=== PATIENT | male | born 1950 | race Hispanic/Latino ===

== ENCOUNTER 2017-12-11 12:13 | Inpatient (IN) | payer MEDICARE ==
[~2017-12-11] VITALS: Ht 172.7 cm; Wt 92.2 kg
[~2017-12-11 12:13] MED LIST: CILO50TA PO; CLOP75TA14 PO; GABA-531 PO; HUM10VIA SQ; INVOK100TB PO; LISI10TA7 PO; METO-409 PO; NITR0.4T50 SL; ROSU20TA PO; TRAM50TA2 PO; TRAM50TA4 PO
[2017-12-11 13:04] LABS: EOSINOPHILS % (AUTO) 1.1 % (0.0-8.0); HEMATOCRIT 34.6 % (42-54); LYMPHOCYTES % (AUTO) 26.8 % (21.0-51.0); MEAN CORPUSCULAR HEMOGLOBIN 29.4 pg (27.0-33.0); MEAN CORPUSCULAR HGB CONC 33.2 g/dL (32.0-36.0); MEAN CORPUSCULAR VOLUME 88.6 fL (79-99); MONOCYTES % (AUTO) 8.1 % (3.0-13.0); PLATELET COUNT (AUTO) 211 K/uL (130-400); RED BLOOD CELL COUNT(AUTO) 3.91 MIL/uL (4.50-6.20); RED CELL DISTRIBUTION WIDTH 14.1 % (11.0-15.5); WHITE BLOOD COUNT (AUTO) 6.9 K/uL (4.8-10.8)
[2017-12-11 13:10] LABS: CREATININE 1.2 mg/dL (0.5-1.5)
[2017-12-11 13:11] LABS: INR 0.99 (0.85-1.15); PROTHROMBIN TIME 10.4 SEC (9.6-11.6)
[2017-12-11 13:14] LABS: ALBUMIN 2.8 g/dL (3.5-5.0); BILIRUBIN,TOTAL 0.3 mg/dL (0.2-1.0); CRP QUANTITATIVE 104.4 mg/L (0.00-9.0); TOTAL PROTEIN, SERUM 7.2 g/dL (6.0-8.3)
[2017-12-11 14:02] LABS: ERYTHROCYTE SEDIMENTATION RATE 70 MM/HR (0-15)
[2017-12-11] MEDS ORDERED: LEVOFLOXACIN 500 MG TABLET ONE (15:33)
[2017-12-11] MEDS ORDERED: METRONIDAZOLE 500 MG TABLET ONE (15:33)
[2017-12-11] MEDS ORDERED: ONDANSETRON HCL 4 MG/2 ML VIAL IVP PRN (16:45)
[2017-12-11] MEDS ORDERED: COMPOUND IV REFRIGERATED 1 EACH IVSOLN MISC PRN (16:45)
[2017-12-11] MEDS ORDERED: ACETAMINOPHEN 325 MG TAB PO PRN (16:45)
[2017-12-11] MEDS: ZOSYN 3.375GM+NS 50ML 50 ML IV SCH (17:00)
[2017-12-11] MEDS: VANCOMYCIN 1.25 GM in SODIUM CHLORIDE 0.9% 250 ML IV SCH (18:00)
[2017-12-11] MEDS: INSULIN R PO SS1 SQ SCH (21:00)
[2017-12-11] MEDS ORDERED: KETOROLAC TROMETHAMINE 15MG/ML ONE (22:46)
[2017-12-11] MEDS ORDERED: POTASSIUM CHLORIDE 20MEQ/100ML 100 ML IV PRN (23:15)
[2017-12-11] MEDS ORDERED: MORPHINE SULFATE 2 MG/ML 1ML SYG IVP PRN (23:15)
[2017-12-11] MEDS ORDERED: POTASSIUM CHLORIDE 10% ELIXIR 20 MEQ/15 ML UDCUP PO PRN (23:15)
[2017-12-11] MEDS ORDERED: LIDOCAINE HCL-MPF 1% 2ML VIAL IVP PRN (23:15)
[2017-12-11] MEDS ORDERED: IPRATROPIUM/ALBUTEROL SULFATE 3 ML SOLUTION IH PRN (23:15)
[2017-12-11] MEDS ORDERED: HYDRALAZINE HCL 20 MG/ML VIAL IV PRN (23:15)
[2017-12-11] MEDS ORDERED: POTASSIUM CHLORIDE 20 MEQ ERTAB PO PRN (23:15)
[2017-12-11 23:25] VITALS: BP 118/58
[2017-12-12] MEDS ORDERED: SULF1TAB42 PO (01:10)
[2017-12-12] MEDS: ZOSYN 3.375GM+NS 50ML 50 ML IV SCH ×3 (01:45→17:07)
[2017-12-12 04:47] VITALS: BP 124/57
[2017-12-12 05:39] LABS: BASOPHILS % (AUTO) 0.5 % (0.0-5.0); EOSINOPHILS % (AUTO) 1.4 % (0.0-8.0); HEMATOCRIT 32.9 % (42-54); LYMPHOCYTES % (AUTO) 28.2 % (21.0-51.0); MEAN CORPUSCULAR HEMOGLOBIN 29.5 pg (27.0-33.0); MEAN CORPUSCULAR HGB CONC 33.8 g/dL (32.0-36.0); MEAN CORPUSCULAR VOLUME 87.3 fL (79-99); MONOCYTES % (AUTO) 9.4 % (3.0-13.0); NEUTROPHILS % (AUTO) 60.5 % (40.0-77.0); PLATELET COUNT (AUTO) 197 K/uL (130-400); RED BLOOD CELL COUNT(AUTO) 3.77 MIL/uL (4.50-6.20); RED CELL DISTRIBUTION WIDTH 13.9 % (11.0-15.5); WHITE BLOOD COUNT (AUTO) 5.5 K/uL (4.8-10.8)
[2017-12-12 05:49] LABS: CREATININE 1.2 mg/dL (0.5-1.5); INR 1.03 (0.85-1.15); POTASSIUM 4.7 mmol/L (3.5-5.1); PROTHROMBIN TIME 10.8 SEC (9.6-11.6)
[2017-12-12] MEDS: INSULIN R PO SS1 SQ SCH ×4 (07:01→21:09)
[2017-12-12 08:00] VITALS: BP 125/63
[2017-12-12] MEDS: FAMOTIDINE 20MG TAB 20 MG TAB PO SCH ×2 (09:20→21:00)
[2017-12-12] MEDS: VANCOMYCIN 1.25 GM in SODIUM CHLORIDE 0.9% 250 ML IV SCH ×2 (09:37→20:59)
[2017-12-12 12:00] VITALS: BP 146/42
[2017-12-12] MEDS: GABAPENTIN 300 MG CAPSULE PO SCH ×2 (14:07→21:00)
[2017-12-12] MEDS: TRAMADOL HCL 50 MG TABLET PO PRN (14:53)
[2017-12-12 16:14] VITALS: BP 129/63
[2017-12-12 19:54] VITALS: BP 127/57
[2017-12-12] MEDS: METOPROLOL TARTRATE 50 MG TAB PO SCH (21:00)
[2017-12-12] MEDS: ATORVASTATIN CALCIUM 40 MG TABLET PO SCH (21:00)
[2017-12-12 23:49] VITALS: BP 98/54
[2017-12-13] MEDS: ZOSYN 3.375GM+NS 50ML 50 ML IV SCH ×3 (00:01→17:20)
[2017-12-13 04:00] VITALS: BP 132/68
[2017-12-13 05:35] LABS: BASOPHILS % (AUTO) 0.5 % (0.0-5.0); EOSINOPHILS % (AUTO) 1.7 % (0.0-8.0); HEMATOCRIT 34.2 % (42-54); LYMPHOCYTES % (AUTO) 34.8 % (21.0-51.0); MEAN CORPUSCULAR HEMOGLOBIN 29.9 pg (27.0-33.0); MEAN CORPUSCULAR VOLUME 87.9 fL (79-99); MONOCYTES % (AUTO) 10.9 % (3.0-13.0); NEUTROPHILS % (AUTO) 52.1 % (40.0-77.0); PLATELET COUNT (AUTO) 215 K/uL (130-400); RED BLOOD CELL COUNT(AUTO) 3.89 MIL/uL (4.50-6.20); RED CELL DISTRIBUTION WIDTH 13.6 % (11.0-15.5); WHITE BLOOD COUNT (AUTO) 5.2 K/uL (4.8-10.8)
[2017-12-13 05:48] LABS: CREATININE 1.1 mg/dL (0.5-1.5); POTASSIUM 4.4 mmol/L (3.5-5.1)
[2017-12-13] MEDS: LACTULOSE 20 GM/30 ML UDCUP PO PRN (06:11)
[2017-12-13 07:30] VITALS: BP 165/74
[2017-12-13] MEDS: INSULIN R PO SS1 SQ SCH ×4 (07:30→21:00)
[2017-12-13] MEDS: **HM** INVOKANA 100MG PO SCH (09:00)
[2017-12-13] MEDS: VANCOMYCIN 1.25 GM in SODIUM CHLORIDE 0.9% 250 ML IV SCH ×2 (10:00→21:56)
[2017-12-13] MEDS: CLOPIDOGREL BISULFATE 75 MG TAB PO SCH (10:01)
[2017-12-13] MEDS: TRAMADOL HCL 50 MG TABLET PO PRN ×2 (10:02→21:58)
[2017-12-13] MEDS: FAMOTIDINE 20MG TAB 20 MG TAB PO SCH ×2 (10:02→21:57)
[2017-12-13] MEDS: LISINOPRIL 5 MG TABLET PO SCH (10:02)
[2017-12-13] MEDS: GABAPENTIN 300 MG CAPSULE PO SCH ×3 (10:03→21:57)
[2017-12-13] MEDS: METOPROLOL TARTRATE 50 MG TAB PO SCH ×2 (10:04→21:57)
[2017-12-13 11:00] VITALS: BP 126/58
[2017-12-13 16:00] VITALS: BP 105/46
[2017-12-13 20:19] VITALS: BP 120/51
[2017-12-13] MEDS: ATORVASTATIN CALCIUM 40 MG TABLET PO SCH (21:56)
[2017-12-13 22:30] VITALS: BP 131/87
[2017-12-14] VITALS (7 sets, daily range): BP systolic 104–124; BP diastolic 48–55
[2017-12-14] MEDS: ZOSYN 3.375GM+NS 50ML 50 ML IV SCH ×3 (01:51→17:45)
[2017-12-14 05:11] LABS: BASOPHILS % (AUTO) 0.7 % (0.0-5.0); EOSINOPHILS % (AUTO) 1.9 % (0.0-8.0); HEMATOCRIT 32.7 % (42-54); LYMPHOCYTES % (AUTO) 39.8 % (21.0-51.0); MEAN CORPUSCULAR HEMOGLOBIN 29.5 pg (27.0-33.0); MEAN CORPUSCULAR HGB CONC 33.4 g/dL (32.0-36.0); MEAN CORPUSCULAR VOLUME 88.2 fL (79-99); MONOCYTES % (AUTO) 10.5 % (3.0-13.0); NEUTROPHILS % (AUTO) 47.1 % (40.0-77.0); PLATELET COUNT (AUTO) 219 K/uL (130-400); RED BLOOD CELL COUNT(AUTO) 3.71 MIL/uL (4.50-6.20); RED CELL DISTRIBUTION WIDTH 14.2 % (11.0-15.5); WHITE BLOOD COUNT (AUTO) 6.5 K/uL (4.8-10.8)
[2017-12-14 05:17] LABS: CREATININE 1.1 mg/dL (0.5-1.5); POTASSIUM 4.5 mmol/L (3.5-5.1)
[2017-12-14] MEDS: INSULIN R PO SS1 SQ SCH ×4 (06:08→22:57)
[2017-12-14] MEDS: **HM** INVOKANA 100MG PO SCH (09:00)
[2017-12-14] MEDS: VANCOMYCIN 1.25 GM in SODIUM CHLORIDE 0.9% 250 ML IV SCH ×2 (09:39→22:59)
[2017-12-14] MEDS: METOPROLOL TARTRATE 50 MG TAB PO SCH ×2 (09:40→23:00)
[2017-12-14] MEDS: FAMOTIDINE 20MG TAB 20 MG TAB PO SCH ×2 (09:40→23:00)
[2017-12-14] MEDS: LISINOPRIL 5 MG TABLET PO SCH (09:40)
[2017-12-14] MEDS: CLOPIDOGREL BISULFATE 75 MG TAB PO SCH (09:40)
[2017-12-14] MEDS: GABAPENTIN 300 MG CAPSULE PO SCH ×3 (09:40→23:00)
[2017-12-14] MEDS ORDERED: IOPAMIDOL-370 75 ML VIAL IV ONE (12:11)
[2017-12-14] MEDS ORDERED: ISOVUE-370 50ML VIAL IV ONE (12:11)
[2017-12-14] MEDS: MORPHINE SULFATE 2 MG/ML 1ML SYG IVP PRN (18:57)
[2017-12-14] MEDS: ATORVASTATIN CALCIUM 40 MG TABLET PO SCH (23:00)
[2017-12-15] MEDS: MORPHINE SULFATE 2 MG/ML 1ML SYG IVP PRN ×2 (00:39→21:21)
[2017-12-15] MEDS: ZOSYN 3.375GM+NS 50ML 50 ML IV SCH ×3 (00:47→17:00)
[2017-12-15 04:00] VITALS: BP 111/52
[2017-12-15 05:58] LABS: HEMATOCRIT 34.7 % (42-54); MEAN CORPUSCULAR HEMOGLOBIN 29.5 pg (27.0-33.0); MEAN CORPUSCULAR HGB CONC 33.5 g/dL (32.0-36.0); MEAN CORPUSCULAR VOLUME 87.9 fL (79-99); PLATELET COUNT (AUTO) 213 K/uL (130-400); RED BLOOD CELL COUNT(AUTO) 3.94 MIL/uL (4.50-6.20); RED CELL DISTRIBUTION WIDTH 13.6 % (11.0-15.5); WHITE BLOOD COUNT (AUTO) 6.3 K/uL (4.8-10.8)
[2017-12-15 06:08] LABS: CREATININE 1.1 mg/dL (0.5-1.5); POTASSIUM 4.7 mmol/L (3.5-5.1)
[2017-12-15] MEDS: INSULIN R PO SS1 SQ SCH ×4 (06:38→21:13)
[2017-12-15 08:00] VITALS: BP 126/59
[2017-12-15] MEDS: **HM** INVOKANA 100MG PO SCH (09:00)
[2017-12-15] MEDS: CLOPIDOGREL BISULFATE 75 MG TAB PO SCH (09:53)
[2017-12-15] MEDS: ASPIRIN 81MG TAB.CHEW PO SCH (09:53)
[2017-12-15] MEDS: LISINOPRIL 5 MG TABLET PO SCH (09:53)
[2017-12-15] MEDS: FAMOTIDINE 20MG TAB 20 MG TAB PO SCH ×2 (09:54→21:21)
[2017-12-15] MEDS: GABAPENTIN 300 MG CAPSULE PO SCH ×3 (09:54→21:21)
[2017-12-15] MEDS: METOPROLOL TARTRATE 50 MG TAB PO SCH ×2 (09:54→21:21)
[2017-12-15] MEDS: VANCOMYCIN 1.25 GM in SODIUM CHLORIDE 0.9% 250 ML IV SCH ×2 (09:55→21:21)
[2017-12-15 11:53] VITALS: BP 120/48
[2017-12-15 16:00] VITALS: BP 130/59
[2017-12-15 20:00] VITALS: BP 107/57
[2017-12-15] MEDS: ATORVASTATIN CALCIUM 40 MG TABLET PO SCH (21:21)
[2017-12-16] VITALS (7 sets, daily range): BP systolic 100–122; BP diastolic 44–60
[2017-12-16] MEDS: ZOSYN 3.375GM+NS 50ML 50 ML IV SCH ×3 (01:00→17:00)
[2017-12-16] MEDS: MORPHINE SULFATE 2 MG/ML 1ML SYG IVP PRN (01:52)
[2017-12-16 05:52] LABS: PARTIAL THROMBOPLASTIN TIME 27.8 SEC (26.3-35.5); PROTHROMBIN TIME 10.5 SEC (9.6-11.6)
[2017-12-16] MEDS: INSULIN R PO SS1 SQ SCH ×4 (06:28→21:00)
[2017-12-16] MEDS: METOPROLOL TARTRATE 50 MG TAB PO SCH ×2 (07:37→09:21)
[2017-12-16] MEDS: ASPIRIN 81MG TAB.CHEW PO SCH (09:00)
[2017-12-16] MEDS: FAMOTIDINE 20MG TAB 20 MG TAB PO SCH ×2 (09:00→22:03)
[2017-12-16] MEDS: CLOPIDOGREL BISULFATE 75 MG TAB PO SCH (09:00)
[2017-12-16] MEDS: **HM** INVOKANA 100MG PO SCH (09:00)
[2017-12-16] MEDS: LISINOPRIL 5 MG TABLET PO SCH (09:00)
[2017-12-16] MEDS: GABAPENTIN 300 MG CAPSULE PO SCH ×3 (09:00→22:02)
[2017-12-16] MEDS: VANCOMYCIN 1.25 GM in SODIUM CHLORIDE 0.9% 250 ML IV SCH ×2 (10:57→22:02)
[2017-12-16] MEDS ORDERED: MORPHINE SULFATE 4 MG/1ML SYG IVP PRN (11:30)
[2017-12-16] MEDS ORDERED: KETOROLAC TROMETHAMINE 15MG/ML IV PRN (11:30)
[2017-12-16] MEDS: ACETAMINOPHEN-CODEINE 300/30MG TAB PO PRN ×2 (13:14→22:23)
[2017-12-16] MEDS ORDERED: PHARMACY COMMUNICATION MISC SCH (13:15)
[2017-12-16] MEDS: MEROPENEM 1 GM VIAL IVP SCH (22:01)
[2017-12-16] MEDS: ATORVASTATIN CALCIUM 40 MG TABLET PO SCH (22:02)
[2017-12-17 04:00] VITALS: BP 112/50
[2017-12-17 04:29] LABS: HEMATOCRIT 33.3 % (42-54); MEAN CORPUSCULAR HEMOGLOBIN 29.4 pg (27.0-33.0); MEAN CORPUSCULAR HGB CONC 33.3 g/dL (32.0-36.0); MEAN CORPUSCULAR VOLUME 88.4 fL (79-99); PLATELET COUNT (AUTO) 206 K/uL (130-400); RED BLOOD CELL COUNT(AUTO) 3.77 MIL/uL (4.50-6.20); RED CELL DISTRIBUTION WIDTH 13.6 % (11.0-15.5)
[2017-12-17 04:52] LABS: CREATININE 0.9 mg/dL (0.5-1.5)
[2017-12-17] MEDS: MEROPENEM 1 GM VIAL IVP SCH ×3 (05:25→20:28)
[2017-12-17 07:00] VITALS: BP 138/61
[2017-12-17] MEDS: INSULIN R PO SS1 SQ SCH ×4 (07:30→21:25)
[2017-12-17] MEDS: **HM** INVOKANA 100MG PO SCH (09:00)
[2017-12-17] MEDS: ACETAMINOPHEN-CODEINE 300/30MG TAB PO PRN ×2 (10:32→23:40)
[2017-12-17] MEDS: GABAPENTIN 300 MG CAPSULE PO SCH ×3 (10:32→20:41)
[2017-12-17] MEDS: FAMOTIDINE 20MG TAB 20 MG TAB PO SCH ×2 (10:32→20:28)
[2017-12-17] MEDS: METOPROLOL TARTRATE 50 MG TAB PO SCH ×2 (10:33→20:28)
[2017-12-17] MEDS: VANCOMYCIN 1.25 GM in SODIUM CHLORIDE 0.9% 250 ML IV SCH ×2 (10:33→21:24)
[2017-12-17] MEDS: LISINOPRIL 5 MG TABLET PO SCH (10:33)
[2017-12-17 11:00] VITALS: BP 117/47
[2017-12-17 16:07] VITALS: BP 94/45
[2017-12-17 18:06] VITALS: BP 155/68
[2017-12-17] MEDS: MORPHINE SULFATE 2 MG/ML 1ML SYG IVP PRN (18:09)
[2017-12-17 20:00] VITALS: BP 153/67
[2017-12-17] MEDS: ATORVASTATIN CALCIUM 40 MG TABLET PO SCH (20:28)
[2017-12-18] VITALS: BP 139/58
[2017-12-18 04:00] VITALS: BP 133/57
[2017-12-18] MEDS: MEROPENEM 1 GM VIAL IVP SCH ×3 (04:24→21:41)
[2017-12-18] MEDS: LACTULOSE 20 GM/30 ML UDCUP PO PRN (04:30)
[2017-12-18] MEDS: INSULIN R PO SS1 SQ SCH ×4 (06:22→21:32)
[2017-12-18 07:00] VITALS: BP 126/65
[2017-12-18] MEDS: METOPROLOL TARTRATE 50 MG TAB PO SCH ×2 (08:47→21:41)
[2017-12-18] MEDS: GABAPENTIN 300 MG CAPSULE PO SCH ×3 (08:47→21:41)
[2017-12-18] MEDS: LISINOPRIL 5 MG TABLET PO SCH (08:47)
[2017-12-18] MEDS: **HM** INVOKANA 100MG PO SCH (08:47)
[2017-12-18] MEDS: FAMOTIDINE 20MG TAB 20 MG TAB PO SCH ×2 (08:47→21:41)
[2017-12-18] MEDS: VANCOMYCIN 1.25 GM in SODIUM CHLORIDE 0.9% 250 ML IV SCH ×2 (08:48→21:43)
[2017-12-18] MEDS: ACETAMINOPHEN-CODEINE 300/30MG TAB PO PRN ×2 (10:51→22:04)
[2017-12-18 11:00] VITALS: BP 119/56
[2017-12-18 16:00] VITALS: BP 110/51
[2017-12-18 20:00] VITALS: BP 155/71
[2017-12-18] MEDS: ATORVASTATIN CALCIUM 40 MG TABLET PO SCH (21:41)
[2017-12-19] VITALS: BP 96/45
[2017-12-19 03:48] LABS: HEMATOCRIT 33.5 % (42-54); MEAN CORPUSCULAR HEMOGLOBIN 29.5 pg (27.0-33.0); MEAN CORPUSCULAR HGB CONC 33.6 g/dL (32.0-36.0); MEAN CORPUSCULAR VOLUME 87.8 fL (79-99); PLATELET COUNT (AUTO) 204 K/uL (130-400); RED BLOOD CELL COUNT(AUTO) 3.81 MIL/uL (4.50-6.20); RED CELL DISTRIBUTION WIDTH 13.9 % (11.0-15.5); WHITE BLOOD COUNT (AUTO) 6.3 K/uL (4.8-10.8)
[2017-12-19 03:58] LABS: CREATININE 0.9 mg/dL (0.5-1.5); POTASSIUM 3.9 mmol/L (3.5-5.1)
[2017-12-19 04:00] VITALS: BP 121/69
[2017-12-19] MEDS: MEROPENEM 1 GM VIAL IVP SCH ×3 (05:23→20:34)
[2017-12-19] MEDS: INSULIN R PO SS1 SQ SCH ×4 (06:18→21:39)
[2017-12-19 08:00] VITALS: BP 144/62
[2017-12-19] MEDS: GABAPENTIN 300 MG CAPSULE PO SCH ×3 (08:43→20:34)
[2017-12-19] MEDS: FAMOTIDINE 20MG TAB 20 MG TAB PO SCH ×2 (08:43→20:34)
[2017-12-19] MEDS: METOPROLOL TARTRATE 50 MG TAB PO SCH ×2 (08:43→20:34)
[2017-12-19] MEDS: ACETAMINOPHEN-CODEINE 300/30MG TAB PO PRN ×3 (08:43→23:36)
[2017-12-19] MEDS: LISINOPRIL 5 MG TABLET PO SCH (08:43)
[2017-12-19] MEDS: VANCOMYCIN 1.25 GM in SODIUM CHLORIDE 0.9% 250 ML IV SCH ×2 (08:44→20:35)
[2017-12-19] MEDS: **HM** INVOKANA 100MG PO SCH (08:44)
[2017-12-19 12:00] VITALS: BP 106/46
[2017-12-19] MEDS ORDERED: WATER FOR INJECTION,STERILE 20 ML VIAL ONE (12:31)
[2017-12-19 16:00] VITALS: BP 101/44
[2017-12-19 20:00] VITALS: BP 120/58
[2017-12-19] MEDS: ATORVASTATIN CALCIUM 40 MG TABLET PO SCH (20:34)
[2017-12-20] VITALS (29 sets, daily range): BP systolic 92–159; BP diastolic 47–83
[2017-12-20] MEDS: MEROPENEM 1 GM VIAL IVP SCH ×3 (04:51→20:15)
[2017-12-20] MEDS: INSULIN R PO SS1 SQ SCH ×4 (06:15→21:42)
[2017-12-20] MEDS: GABAPENTIN 300 MG CAPSULE PO SCH ×3 (09:00→20:15)
[2017-12-20] MEDS: **HM** INVOKANA 100MG PO SCH (09:00)
[2017-12-20] MEDS: FAMOTIDINE 20MG TAB 20 MG TAB PO SCH ×2 (09:00→20:15)
[2017-12-20] MEDS: LISINOPRIL 5 MG TABLET PO SCH (10:15)
[2017-12-20] MEDS: MORPHINE SULFATE 2 MG/ML 1ML SYG IVP PRN (10:17)
[2017-12-20] MEDS: METOPROLOL TARTRATE 50 MG TAB PO SCH ×2 (10:17→20:15)
[2017-12-20] MEDS: VANCOMYCIN 1.25 GM in SODIUM CHLORIDE 0.9% 250 ML IV SCH ×2 (10:28→20:15)
[2017-12-20] MEDS ORDERED: LIDOCAINE PF 2% 5ML ABBOJECT ONE ×2 (12:10→16:04)
[2017-12-20] MEDS ORDERED: FENTANYL CITRATE PF 50 MCG/1 ML 2ML VIAL ONE ×3 (12:10→17:33)
[2017-12-20] MEDS ORDERED: MIDAZOLAM HCL 1 MG/ML 2ML VIAL ONE ×2 (12:10→14:55)
[2017-12-20] MEDS ORDERED: SUCCINYLCHOLINE 200MG/10ML SYR ONE (12:10)
[2017-12-20] MEDS ORDERED: GLYCOPYRROLATE 0.2 MG/ML 5 ML VIAL ONE (12:10)
[2017-12-20] MEDS ORDERED: DEXAMETHASONE SOD PHOSPHATE 10MG/ML 1ML VIAL ONE (12:10)
[2017-12-20] MEDS ORDERED: PROPOFOL 10 MG/ML 20ML VIAL IV ONE ×4 (12:10→16:05)
[2017-12-20] MEDS ORDERED: ONDANSETRON HCL 4 MG/2 ML VIAL ONE (12:10)
[2017-12-20] MEDS ORDERED: SODIUM CHLORIDE 0.9% 1000ML 1,000 ML IV ONE (14:07)
[2017-12-20] MEDS ORDERED: FENTANYL CITRATE PF 50 MCG/1 ML 5ML AMP IV ONE (14:55)
[2017-12-20] MEDS ORDERED: EPHEDRINE SULFATE 50 MG/ML AMPULE ONE (15:17)
[2017-12-20] MEDS ORDERED: ROPIVACAINE 0.5% 5MG/ML 30ML IJ ONE (16:32)
[2017-12-20] MEDS ORDERED: MEPERIDINE-PF 25 MG/ML SYG ONE ×2 (17:01→17:56)
[2017-12-20] MEDS ORDERED: KETOROLAC TROMETHAMINE 30MG/ML ONE (17:41)
[2017-12-20] MEDS ORDERED: PROMETHAZINE HCL 25 MG/ML 1ML AMPULE IM ONE (17:56)
[2017-12-20] MEDS: TRAMADOL HCL 50 MG TABLET PO PRN (20:14)
[2017-12-20] MEDS: ATORVASTATIN CALCIUM 40 MG TABLET PO SCH (20:15)
[2017-12-21 04:33] VITALS: BP 107/45
[2017-12-21] MEDS: MEROPENEM 1 GM VIAL IVP SCH (05:03)
[2017-12-21 05:44] LABS: HEMATOCRIT 25.6 % (42-54); MEAN CORPUSCULAR HGB CONC 36.3 g/dL (32.0-36.0); MEAN CORPUSCULAR VOLUME 88.3 fL (79-99); PLATELET COUNT (AUTO) 212 K/uL (130-400); RED CELL DISTRIBUTION WIDTH 13.9 % (11.0-15.5); WHITE BLOOD COUNT (AUTO) 6.3 K/uL (4.8-10.8)
[2017-12-21 06:10] LABS: CREATININE 1.3 mg/dL (0.5-1.5); POTASSIUM 5.1 mmol/L (3.5-5.1)
[2017-12-21] MEDS: INSULIN R PO SS1 SQ SCH ×4 (06:10→20:39)
[2017-12-21 07:00] VITALS: BP 90/42
[2017-12-21] MEDS: **HM** INVOKANA 100MG PO SCH (09:00)
[2017-12-21] MEDS: LISINOPRIL 5 MG TABLET PO SCH (09:00)
[2017-12-21] MEDS: METOPROLOL TARTRATE 50 MG TAB PO SCH ×2 (09:00→20:49)
[2017-12-21] MEDS: FAMOTIDINE 20MG TAB 20 MG TAB PO SCH ×2 (09:23→20:49)
[2017-12-21] MEDS: GABAPENTIN 300 MG CAPSULE PO SCH ×3 (09:24→20:49)
[2017-12-21] MEDS: VANCOMYCIN 1.25 GM in SODIUM CHLORIDE 0.9% 250 ML IV SCH (09:26)
[2017-12-21] MEDS: MORPHINE SULFATE 2 MG/ML 1ML SYG IVP PRN ×2 (09:38→18:28)
[2017-12-21] MEDS ORDERED: CEFTRIAXONE 1GM/D5W 50ML 50 ML IV SCH (10:00)
[2017-12-21 11:00] VITALS: BP 90/42
[2017-12-21] MEDS: CEFTRIAXONE SODIUM 1 GM IVP SCH (12:39)
[2017-12-21] MEDS: SODIUM CHLORIDE 0.9% 1000ML 1,000 ML IV SCH (13:10)
[2017-12-21 15:51] VITALS: BP 101/47
[2017-12-21] MEDS: ACETAMINOPHEN-CODEINE 300/30MG TAB PO PRN ×2 (17:09→23:53)
[2017-12-21] MEDS: ATORVASTATIN CALCIUM 40 MG TABLET PO SCH (20:48)
[2017-12-21 20:59] VITALS: BP 124/53
[2017-12-21 23:41] VITALS: BP 112/51
[2017-12-22] MEDS: SODIUM CHLORIDE 0.9% 1000ML 1,000 ML IV SCH (01:17)
[2017-12-22 04:20] VITALS: BP 118/50
[2017-12-22 04:34] LABS: HEMATOCRIT 24.2 % (42-54); MEAN CORPUSCULAR HEMOGLOBIN 30.3 pg (27.0-33.0); MEAN CORPUSCULAR HGB CONC 34.5 g/dL (32.0-36.0); MEAN CORPUSCULAR VOLUME 87.7 fL (79-99); PLATELET COUNT (AUTO) 201 K/uL (130-400); RED BLOOD CELL COUNT(AUTO) 2.76 MIL/uL (4.50-6.20); RED CELL DISTRIBUTION WIDTH 14.3 % (11.0-15.5); WHITE BLOOD COUNT (AUTO) 9.9 K/uL (4.8-10.8)
[2017-12-22 04:56] LABS: POTASSIUM 4.6 mmol/L (3.5-5.1)
[2017-12-22] MEDS: INSULIN R PO SS1 SQ SCH ×4 (05:24→22:06)
[2017-12-22] MEDS: MORPHINE SULFATE 2 MG/ML 1ML SYG IVP PRN ×5 (05:25→23:38)
[2017-12-22 07:00] VITALS: BP 131/53
[2017-12-22] MEDS: FAMOTIDINE 20MG TAB 20 MG TAB PO SCH ×2 (07:58→21:54)
[2017-12-22] MEDS: METOPROLOL TARTRATE 50 MG TAB PO SCH ×2 (07:58→21:53)
[2017-12-22] MEDS: GABAPENTIN 300 MG CAPSULE PO SCH ×2 (07:58→15:48)
[2017-12-22] MEDS: LISINOPRIL 5 MG TABLET PO SCH (07:59)
[2017-12-22] MEDS: **HM** INVOKANA 100MG PO SCH (08:05)
[2017-12-22] MEDS ORDERED: TRAMADOL HCL 50 MG TABLET PO PRN (10:30)
[2017-12-22 11:00] VITALS: BP 105/46
[2017-12-22] MEDS: CEFTRIAXONE SODIUM 1 GM IVP SCH (11:54)
[2017-12-22] MEDS: FERROUS SULFATE 325 MG TABLET.DR PO SCH (11:55)
[2017-12-22] MEDS ORDERED: GABAPENTIN 300 MG CAPSULE PO SCH (14:00)
[2017-12-22] MEDS: TRAMADOL HCL 50 MG TABLET PO SCH ×2 (15:07→21:53)
[2017-12-22] MEDS: LACTULOSE 20 GM/30 ML UDCUP PO PRN (15:07)
[2017-12-22] MEDS ORDERED: GABAPENTIN 100 MG CAPSULE ONE (15:39)
[2017-12-22] MEDS: GABAPENTIN 100 MG CAPSULE PO SCH ×2 (15:48→21:46)
[2017-12-22 17:34] VITALS: BP 113/53
[2017-12-22 19:00] VITALS: BP 131/58
[2017-12-22] MEDS: ATORVASTATIN CALCIUM 40 MG TABLET PO SCH (21:53)
[2017-12-23] MEDS: ACETAMINOPHEN-CODEINE 300/30MG TAB PO PRN ×2 (02:19→06:43)
[2017-12-23 03:00] VITALS: BP 106/47
[2017-12-23 04:09] LABS: HEMATOCRIT 22.8 % (42-54); MEAN CORPUSCULAR HEMOGLOBIN 30.9 pg (27.0-33.0); MEAN CORPUSCULAR HGB CONC 35.1 g/dL (32.0-36.0); NUCLEATED RED BLOOD CELLS 0.1 % (0.0-0.19); PLATELET COUNT (AUTO) 176 K/uL (130-400); RED BLOOD CELL COUNT(AUTO) 2.59 MIL/uL (4.50-6.20); WHITE BLOOD COUNT (AUTO) 7.5 K/uL (4.8-10.8)
[2017-12-23 04:11] LABS: CREATININE 0.9 mg/dL (0.5-1.5); POTASSIUM 4.3 mmol/L (3.5-5.1)
[2017-12-23] MEDS: INSULIN R PO SS1 SQ SCH ×3 (06:29→17:37)
[2017-12-23 07:00] VITALS: BP 106/47
[2017-12-23] MEDS: **HM** INVOKANA 100MG PO SCH (09:00)
[2017-12-23] MEDS: LISINOPRIL 5 MG TABLET PO SCH (09:33)
[2017-12-23] MEDS: GABAPENTIN 100 MG CAPSULE PO SCH ×2 (09:34→14:43)
[2017-12-23] MEDS: GABAPENTIN 300 MG CAPSULE PO SCH ×2 (09:35→14:43)
[2017-12-23] MEDS: METOPROLOL TARTRATE 50 MG TAB PO SCH (09:35)
[2017-12-23] MEDS: FAMOTIDINE 20MG TAB 20 MG TAB PO SCH (09:35)
[2017-12-23] MEDS: FERROUS SULFATE 325 MG TABLET.DR PO SCH (09:35)
[2017-12-23] MEDS: TRAMADOL HCL 50 MG TABLET PO SCH ×2 (09:36→14:43)
[2017-12-23] MEDS: LACTULOSE 20 GM/30 ML UDCUP PO PRN (10:00)
[2017-12-23 11:00] VITALS: BP 110/53
[2017-12-23] MEDS: CEFTRIAXONE SODIUM 1 GM IVP SCH (12:21)
[2017-12-23 16:00] VITALS: BP 123/41
== END 2017-12-23 18:35 | DRG 617 ==
LOC: EDH 12:13 → OBSVTOIN 15:18 → EDHIP 15:18 → 3DH 22:57
PROVIDERS: ADMIT Internal Medicine; ATTEND Internal Medicine
PROC: 0Y6J0Z1 Detachment at Left Lower Leg, High, Open Approach (ICD-10-PCS; principal; 2017-12-21)
DX: E11.69 Type 2 diabetes mellitus with other specified complication (principal); M86.672 Other chronic osteomyelitis, left ankle and foot; E11.40 Type 2 diabetes mellitus with diabetic neuropathy, unspecified; E11.51 Type 2 diabetes mellitus with diabetic peripheral angiopathy without gangrene; E44.1 Mild protein-calorie malnutrition; E11.65 Type 2 diabetes mellitus with hyperglycemia; L03.116 Cellulitis of left lower limb; E11.621 Type 2 diabetes mellitus with foot ulcer; L97.529 Non-pressure chronic ulcer of other part of left foot with unspecified severity; I25.10 Atherosclerotic heart disease of native coronary artery without angina pectoris; E78.5 Hyperlipidemia, unspecified; Z79.4 Long term (current) use of insulin; I10 Essential (primary) hypertension; Z95.1 Presence of aortocoronary bypass graft; I35.0 Nonrheumatic aortic (valve) stenosis; D64.9 Anemia, unspecified; I99.8 Other disorder of circulatory system; I70.209 Unspecified atherosclerosis of native arteries of extremities, unspecified extremity; Z72.0 Tobacco use; Z89.512 Acquired absence of left leg below knee; I25.2 Old myocardial infarction; Z68.30 Body mass index [BMI] 30.0-30.9, adult
CPT/HCPCS: 36415; 73660; 75635; 80048; 80053; 80202; 82948; 85025; 85027; 85610; 85651; 85730; 86141; 87040; 88307; 93306; 93880; 93925; 93971; 94664; A4218; J0330; J0696; J1100; J1815; J1885; J2001; J2175; J2185; J2250; J2270; J2405; J2543; J2550; J2704; J2795; J3010; J3370; J3490; J7030; Q9967

== ENCOUNTER → 2019-02-17 | Outpatient (CLI) | payer MEDICARE ==
[~2019-02-17] MED LIST changes: -CILO50TA PO; -CLOP75TA14 PO; -LISI10TA7 PO; -METO-409 PO; +METO100T14 PO; +TRAM-355 PO; -TRAM50TA2 PO; -TRAM50TA4 PO
== END | disposition home or self-care (01) ==
LOC: RAH 12:47
PROVIDERS: ATTEND Internal Medicine Critical Care Medicine
DX: I65.23 Occlusion and stenosis of bilateral carotid arteries (principal)
CPT/HCPCS: 93880

== ENCOUNTER → 2019-04-11 | Outpatient (CLI) | payer MEDICARE ==
[~2019-04-11] MED LIST changes: -ROSU20TA PO; +ROSU20TA23 PO
== END | disposition home or self-care (01) ==
LOC: SHCH 13:51
PROVIDERS: ATTEND Internal Medicine Cardiovascular Disease
DX: I35.1 Nonrheumatic aortic (valve) insufficiency (principal); I51.7 Cardiomegaly; M25.522 Pain in left elbow; I25.810 Atherosclerosis of coronary artery bypass graft(s) without angina pectoris; R60.9 Edema, unspecified
CPT/HCPCS: 73070; 93306

== ENCOUNTER → 2019-09-05 | Outpatient (CLI) | payer MEDICARE | END | disposition home or self-care (01) | LOC: RAH 08:43 | PROVIDERS: ATTEND Internal Medicine Critical Care Medicine | DX: Z13.6 Encounter for screening for cardiovascular disorders (principal); I70.0 Atherosclerosis of aorta | CPT/HCPCS: 76775 ==

== ENCOUNTER 2019-11-02 14:52 | Emergency (ER) | payer MEDICARE ==
[2019-11-02] MEDS ORDERED: ASPIRIN 325 MG TABLET ONE (15:28)
[2019-11-02 15:33] LABS: BASOPHILS % (AUTO) 1.1 % (0.0-5.0); EOSINOPHILS % (AUTO) 2.6 % (0.0-8.0); HEMATOCRIT 40.9 % (42-54); LYMPHOCYTES % (AUTO) 34.3 % (21.0-51.0); MEAN CORPUSCULAR HEMOGLOBIN 30.3 pg (27.0-33.0); MEAN CORPUSCULAR HGB CONC 32.6 g/dL (32.0-36.0); MEAN CORPUSCULAR VOLUME 93.1 fL (79-99); MONOCYTES % (AUTO) 8.2 % (3.0-13.0); NEUTROPHILS % (AUTO) 53.8 % (40.0-77.0); NUCLEATED RED BLOOD CELLS 0.1 % (0.0-0.19); PLATELET COUNT (AUTO) 113 K/uL (130-400); RED CELL DISTRIBUTION WIDTH 14.5 % (11.0-15.5); WHITE BLOOD COUNT (AUTO) 5.4 K/uL (4.8-10.8)
[2019-11-02] MEDS ORDERED: ACETAMINOPHEN 325 MG TAB ONE (15:35)
[2019-11-02] MEDS ORDERED: NITROGLYCERIN 1GM/1 INCH PACKET TD ONE (15:36)
[2019-11-02 15:43] LABS: CREATININE 0.9 mg/dL (0.5-1.5); POTASSIUM 4.4 mmol/L (3.5-5.1)
[2019-11-02 15:45] LABS: INR 0.98 (0.85-1.15); PARTIAL THROMBOPLASTIN TIME 25.7 SEC (26.3-35.5); PROTHROMBIN TIME 10.3 SEC (9.6-11.6)
[2019-11-02 15:48] LABS: ALBUMIN 3.3 g/dL (3.5-5.0); BILIRUBIN,TOTAL 0.6 mg/dL (0.2-1.0); TOTAL PROTEIN, SERUM 6.7 g/dL (6.0-8.3)
== END 2019-11-02 20:32 | disposition home or self-care (01) ==
LOC: EDH 14:52
DX: I73.9 Peripheral vascular disease, unspecified (principal); E11.9 Type 2 diabetes mellitus without complications; R06.09 Other forms of dyspnea; I25.10 Atherosclerotic heart disease of native coronary artery without angina pectoris; E78.5 Hyperlipidemia, unspecified; I10 Essential (primary) hypertension; Z98.890 Other specified postprocedural states
CPT/HCPCS: 36415; 71045; 80053; 82550; 83880; 84484; 85025; 85610; 85730; 93005; 93880

== ENCOUNTER → 2019-12-26 | Outpatient (CLI) | payer MEDICARE ==
[~2019-12-26] MED LIST changes: +APIX5TAB PO; +ASPI-1005 PO; +CLOP75TA32 PO; +FLUT16H NASAL; +HUM100VI3 SQ; -HUM10VIA SQ; -INVOK100TB PO; +LEVO25TA54 PO; +LISI2.5T2 PO; -METO100T14 PO; +METO50 PO; -TRAM-355 PO
== END | disposition home or self-care (01) ==
LOC: RAH 09:26
PROVIDERS: ATTEND Internal Medicine Cardiovascular Disease
DX: I08.2 Rheumatic disorders of both aortic and tricuspid valves (principal); I50.9 Heart failure, unspecified
CPT/HCPCS: 93306; 93356

== ENCOUNTER → 2020-03-07 | Outpatient (CLI) | payer MEDICARE | END | disposition home or self-care (01) | LOC: SHCH 10:45 | PROVIDERS: ATTEND Internal Medicine Cardiovascular Disease | DX: I25.10 Atherosclerotic heart disease of native coronary artery without angina pectoris (principal) | CPT/HCPCS: 93306 ==

== ENCOUNTER → 2020-04-09 | Outpatient (CLI) | payer MEDICARE ==
[~2020-04-09] MED LIST changes: +IOHEXOL-350 75 ML VIAL IV ONE
== END | disposition home or self-care (01) ==
LOC: RAH 08:47
PROVIDERS: ATTEND Internal Medicine Critical Care Medicine
DX: R10.13 Epigastric pain (principal); M51.36 Other intervertebral disc degeneration, lumbar region
CPT/HCPCS: 74177; Q9967

== ENCOUNTER 2020-09-30 11:35 | Observation (INO) | payer MEDICARE ==
[~2020-09-30] VITALS: Ht 167.6 cm; Wt 96.9 kg
[~2020-09-30 11:35] MED LIST changes: -IOHEXOL-350 75 ML VIAL IV ONE
[2020-09-30 12:35] LABS: BASOPHILS % (AUTO) 0.1 % (0.0-5.0); HEMATOCRIT 41.4 % (42-54); LYMPHOCYTES % (AUTO) 9.9 % (21.0-51.0); MEAN CORPUSCULAR HGB CONC 32.6 g/dL (32.0-36.0); MEAN CORPUSCULAR VOLUME 95.2 fL (79-99); MONOCYTES % (AUTO) 8.3 % (3.0-13.0); NEUTROPHILS % (AUTO) 81.4 % (40.0-77.0); PLATELET COUNT (AUTO) 165 K/uL (130-400); RED BLOOD CELL COUNT(AUTO) 4.35 MIL/uL (4.50-6.20); RED CELL DISTRIBUTION WIDTH 13.3 % (11.0-15.5); WHITE BLOOD COUNT (AUTO) 11.5 K/uL (4.8-10.8)
[2020-09-30 12:43] LABS: CREATININE 1.3 mg/dL (0.5-1.5); POTASSIUM 5.2 mmol/L (3.5-5.1)
[2020-09-30] MEDS ORDERED: SODIUM CHLORIDE 0.9% 50 ML IV ONE (12:45)
[2020-09-30 12:46] LABS: ALBUMIN 3.2 g/dL (3.5-5.0); BILIRUBIN,TOTAL 1.1 mg/dL (0.2-1.0); TOTAL PROTEIN, SERUM 6.6 g/dL (6.0-8.3)
[2020-09-30] MEDS ORDERED: AZITHROMYCIN 250 MG TABLET PO ONE (12:46)
[2020-09-30] MEDS ORDERED: CEFTRIAXONE SODIUM 1 GM ONE (12:46)
[2020-09-30 12:48] LABS: INR 1.03 (0.85-1.15); PROTHROMBIN TIME 11.1 SEC (9.6-11.6)
[2020-09-30 13:03] LABS: ABG BASE EXCESS -4.9 mmol/L (-2.0-3.0); ABG HCO3 19.4 mmol/L (21.0-28.0); ABG OXYGEN SATURATION 93.9 % (95.0-99.0); ABG PCO2 34 mmHg (35-48)
[2020-09-30 13:04] LABS: B-TYPE NATRIURETIC PEPTIDE 1010 pg/mL (0-100)
[2020-09-30 13:13] LABS: APPEARANCE,URINE Clear (CLEAR); BILIRUBIN,URINE Negative (NEGATIVE); COLOR,URINE Yellow (YELLOW); GLUCOSE, URINE (UA) >=1000 mg/dL (NEGATIVE); KETONES,URINE 40 mg/dL (NEGATIVE); LEUKOCYTE ESTERASE ,URINE Negative (NEGATIVE); NITRATE,URINE Negative (NEGATIVE); OCCULT BLOOD,URINE Negative (NEGATIVE); PROTEIN,URINE POS 1+ mg/dL (NEGATIVE)
[2020-09-30 13:18] LABS: BACTERIA,URINE Rare /HPF (None Seen); RBC,URINE 0-1 /HPF (0-1); SQUAMOUS EPITHELIAL CELL,UR Rare /HPF (0-2); WBC,URINE 0-1 /HPF (0-1)
[2020-09-30 13:37] LABS: RAPID GROUP A STREP NEGATIVE (NEGATIVE)
[2020-09-30] MEDS ORDERED: DEXAMETHASONE SOD PHOSPHATE 4 MG/ML 5ML VIAL ONE (14:17)
[2020-09-30] MEDS ORDERED: ALBUTEROL INHALER 90MCG/INH IH ONE (14:17)
[2020-09-30] MEDS ORDERED: POTASSIUM CHLORIDE 20MEQ/100ML 100 ML IV PRN (15:30)
[2020-09-30] MEDS ORDERED: FUROSEMIDE 10 MG/ML 4ML VIAL IVP SCH (15:30)
[2020-09-30] MEDS ORDERED: MAGNESIUM 2GM PREMIX 50ML 50 ML IV PRN (15:30)
[2020-09-30] MEDS ORDERED: ACETAMINOPHEN 325 MG TAB PO PRN (15:30)
[2020-09-30] MEDS ORDERED: POTASSIUM CHLORIDE 10% ELIXIR 20 MEQ/15 ML UDCUP PO PRN (15:30)
[2020-09-30] MEDS ORDERED: LIDOCAINE HCL-MPF 1% 2ML VIAL IV PRN (15:30)
[2020-09-30] MEDS ORDERED: ACETAMINOPHEN-CODEINE 300/30MG TAB PO PRN (15:30)
[2020-09-30] MEDS ORDERED: HYDRALAZINE HCL 20 MG/ML VIAL IV PRN (15:30)
[2020-09-30] MEDS ORDERED: GLUCAGON 1MG KIT 1 MG ML IM PRN (15:30)
[2020-09-30] MEDS ORDERED: POTASSIUM CHLORIDE 20 MEQ ERTAB PO PRN (15:30)
[2020-09-30] MEDS ORDERED: ONDANSETRON HCL 4 MG/2 ML VIAL IVP PRN (15:30)
[2020-09-30] MEDS ORDERED: DEXTROSE 50%-WATER 50 ML DISP.SYRIN IV PRN (15:30)
[2020-09-30] MEDS ORDERED: DOXYCYCLINE 100MG+NS 250ML 250 ML IV SCH (15:45)
[2020-09-30] MEDS ORDERED: INSULIN HUMULIN R 100 UNIT/ML 3ML SQ SCH (16:30)
[2020-09-30] MEDS ORDERED: FUROSEMIDE 10 MG/ML 4ML VIAL ONE (16:46)
[2020-09-30] MEDS ORDERED: DOXYCYCLINE 100MG+NS 250ML 250 ML IV ONE (16:46)
--- NOTE | 2020-09-30 19:47 | NUR ---
Pt arrived to unit at approximately 1745 by stretcher escorted by 2 staff members. BP 92/53 right arm laying, HR 102 RR 20 O2sat 100% on 2L BNC Pt alert and oriented to person, place, time, and situation. Calm cooperative. Speech clear and appropriate. SKin warm dry to touch. This nurse as well as the PCP introduced to pt to initiate orientation to the room. While completing the admission assessment the pt asked if he could urinate; pt provided w/urinal. Approximately 350 ml clear yellow output emptied and admission assessment continued. Pt asked if he could be assisted to the restroom to have a bowel movement pt provided w/ prosthetic and assisted to the restroom w/ O2 tank on 2L BNC. Pt oriented to the bathroom call light to call for assistance upon completion of bowel movement. This nurse remained in the pt room to assist pt back to bed and complete the admission assessment, but stepped out of the restroom to provide privacy for the pt. This nurse remained in the pt room the entire time the pt was on the toilet to ensure the pt did not attempt to return to bed on his own. This nurse checked on the pt multiple times while he was in the bathroom. Pt noted to be sitting on commode w/ small amount of orange emesis noted in front of commode; pt provided w/ emesis bag. Pt continued to remain on the toilet; pt asked if he was constipated and pt replied "yes". Pt advised not to strain on toilet due to health history of multiple heart issues. This nurse stepped out of the bathroom to provide privacy, but remained in the pt room. Pt notified of this nurse reentering the bathroom the pt did not reply and upon opening the bathroom door the pt found sitting on toilet leaning forward. This nurse continued to call the name of the pt, attempted to return the patient's upper body in to sitting position; upper body flaccid and returned to forward leaning position. Noxious stimuli applied and the pt continued w/ no physical or verbal response. Jona garcia initiated and called out into the halls for assistance. Pt gently assisted from the toilet to the floor by multiple nurses and CPR initiated. After multiple rounds of CPR, multiple defibrillation attempts, and intubation pt pronounced at approximately 1909. Attempted to contact the person to notify, Polly Joe at [phone] multiple times and repeatedly got the busy signal and [phone] no answer and Next of Kin Tirso Temocristin at [phone] and [phone] mulitple times w/ no answer. Pt cellphone accessed to obtain numbers for contacting family. Upon first attempt contacted friend of the pt who stated he only had the patients number and no other family members; no pt info released to friend. Upon second contact from numbers in cellphone this nurse contacted the patient's daughter Pat Joe and was asked to assist w/ contacting Polly Joe and/or Tirso Joe the daughter stated she is "also on paperwork" and did not provide the requested info and at that time this nurse informed Pat Joe the patient was . The daughter began to scream and the son-in-law began to talk. The son- in- law was asked about home arrangements and whether or not the family would like an autopsy performed. No answer was provided and the daughter stated she was on her way to the facility so floor and room number provided. Unable to save admission assessment info due to incomplete assessment. This information was passed on in report.
[2020-09-30] MEDS ORDERED: FAMOTIDINE 20MG TAB 20 MG TAB PO SCH (21:00)
--- NOTE | 2020-09-30 23:00 | NUR ---
FAMILY VISITATION AFTER FAMILY ASSISTED WITH PPE APPLICATION AND WAS TAKEN TO ROOM 205. FAMILY ASKED TO STAY OUTSIDE OF PATIENT ROOM DUE TO PATIENT CURRENTLY PUI PENDING PCR RESULTS. FIRST FAMILY MEMBERS CONSISTED OF SON AND DAUGHTER IN LAW. WHILE PAUSING TO APPLY GLOVES AT PPE STATION SON WENT INTO PATIENTS ROOM WAILING/SOBBING AND LAYED HIS TORSO OVER THE . SPOKE TO SONS SPOUSE AND INFORMED THAT PATIENT COVID STATUS IS NOT CONFIRMED AND TO TAKE PRECAUTION WHEN RETURNING HOME AND INTERACTING WITH FAMILY. DAUGHTER IN LAW STATED THAT IT WAS NOT IMPORTANT RIGHT NOW. SECURITY REMAINED IN AREA DUE TO SONS EMOTIONAL STATE. INITIALLY WAS TOLD THAT PATIENT HAD 5 CHILDREN AND A SPOUSE. AFTER SECOND SET OF VISITORS WAS TOLD THAT PATIENT HAD 9 CHILDREN. SECURITY STATED THAT THERE WERE MULTIPLE FAMILY MEMBERS IN ER WAITING ROOM.INFORMED FAMILY AND SECURITY THAT ONLY CHILDREN AND SPOUSE WOULD BE ALLOWED VISITATION AT THIS TIME. AFTER ALL AVAILABLE CHILDREN AND SPOUSE SAW PATIENT BELONGINGS INCLUDING PROSTHETIC LEG WERE TAKEN DOWN TO ER. UNKNOWN FEMALE FAMILY MEMBER EXTREMELY UPSET, ASKING DEMANDING QUESTIONS WITH OTHER FAMILY PRESENT. ANSWERED TO THE BEST OF MY KNOWLEDGE. DAUGHTER STATED FAMILY IS REQUESTING AUTOPSY. REFERRED TO HS AND PROVIDED PHONE NUMBER. FAMILY WAS USHERED OUT OF ER BY SECURITY.
--- NOTE | 2020-09-30 23:00 | NUR ---
[facility] [place] TRANSPORT [facility] AND TRANSFERRED DOWN TO [facility] BY [place]URITY.
[2020-10-01] MEDS ORDERED: ENOXAPARIN SODIUM 40 MG/0.4 ML SYRINGE SQ SCH (09:00)
[2020-10-01] MEDS ORDERED: DEXAMETHASONE SOD PHOSPHATE 4 MG/ML 1ML VIAL IVP SCH (09:00)
== END 2020-09-30 19:09 | disposition expired ==
LOC: EDH 11:35 → EDHIP 15:04 → 2AH 18:00
PROVIDERS: ADMIT Internal Medicine Critical Care Medicine; ATTEND Internal Medicine Critical Care Medicine
DX: I11.0 Hypertensive heart disease with heart failure (principal); Z20.828 Contact with and (suspected) exposure to other viral communicable diseases; I50.42 Chronic combined systolic (congestive) and diastolic (congestive) heart failure; J96.01 Acute respiratory failure with hypoxia; J18.9 Pneumonia, unspecified organism; I95.9 Hypotension, unspecified; E11.9 Type 2 diabetes mellitus without complications; I70.0 Atherosclerosis of aorta; I48.92 Unspecified atrial flutter; E78.5 Hyperlipidemia, unspecified; E03.9 Hypothyroidism, unspecified; I25.10 Atherosclerotic heart disease of native coronary artery without angina pectoris; Z86.74 Personal history of sudden cardiac arrest; Z89.512 Acquired absence of left leg below knee; Z95.5 Presence of coronary angioplasty implant and graft; Z95.1 Presence of aortocoronary bypass graft; Z87.891 Personal history of nicotine dependence; Z79.01 Long term (current) use of anticoagulants; Z79.899 Other long term (current) drug therapy
CPT/HCPCS: 36415; 36600; 70450; 71045; 80053; 81001; 82140; 82435; 82550; 82803; 82947; 82948; 83605 ×3; 83880; 84132; 84295; 84484 ×2; 85018; 85025; 85610; 85730; 87040 ×2; 87426; 87804 ×2; 87880; 92950; 93005; 99291; G0378 ×4; J0696; J1100; J1940; J3490; U0003